=== PATIENT | female | born 1950 | race Caucasian/White ===

== ENCOUNTER 2018-09-10 16:46 | Emergency (ER) | payer BC ==
[~2018-09-10] VITALS: Ht 172.7 cm; Wt 72.6 kg
[2018-09-10] MEDS ORDERED: CYCLOBENZAPRINE10 MG PO (18:43)
[2018-09-10] MEDS ORDERED: Motrin,Rufen800 MG PO (18:43)
== END 2018-09-10 19:15 | disposition home or self-care (01) ==
LOC: ED 16:46
DX: S29.011A Strain of muscle and tendon of front wall of thorax, initial encounter (principal); V43.52XA Car driver injured in collision with other type car in traffic accident, initial encounter; Y93.89 Activity, other specified; Y92.488 Other paved roadways as the place of occurrence of the external cause; Y99.8 Other external cause status

== ENCOUNTER → 2023-01-16 | Outpatient (CLI) | payer MEDICARE ==
[~2023-01-16] MED LIST: CYCLOBENZAPRINE10 MG PO; Motrin,Rufen800 MG PO
== END | disposition home or self-care (01) ==
LOC: LAB 15:01
PROVIDERS: ATTEND Dermatology
DX: L40.0 Psoriasis vulgaris (principal)

== ENCOUNTER 2023-02-28 17:08 | Emergency (ER) | payer MEDICARE ==
[~2023-02-28] VITALS: Ht 172.7 cm; Wt 61.2 kg
[2023-02-28 17:58] LABS: BASO % 0.8 % (0.0-1.0); EOS # 0.2 10*3/uL (0.0-0.4); EOS % 4.8 % (1.0-4.0); LYMPH # 1.6 10*3/uL (1.3-4.4); LYMPH % 32.5 % (27.0-41.0); MEAN CELL VOLUME 92.2 fl (81.0-99.0); MEAN CORPUSCULAR HGB 30.7 pg (27.0-31.0); MEAN CORPUSCULAR HGB CONC 33.3 g/dl (33.0-37.0); MEAN PLATELET VOLUME 10.7 fl (9.6-12.3); MONO # 0.3 10*3/uL (0.1-1.0); MONO % 6.4 % (3.0-9.0); NEUT # 2.8 10*3/uL (2.3-7.9); NEUT % 55.3 % (47.0-73.0); PLATELET COUNT AUTOMATED 244 10*3/uL (130-400); RED BLOOD COUNT 4.23 10*6/uL (4.10-5.10); RED CELL DISTRI WIDTH 12.6 % (0-14.5)
[2023-02-28 18:12] LABS: ACT PARTIAL THROMBO TIME 25.8 SECONDS (20.0-32.1)
[2023-02-28 18:31] LABS: ALKALINE PHOSPHATASE 124 U/L (46-116); BUN 15 mg/dl (9-23); CHLORIDE 107 mmol/L (98-107); LIPASE 100 U/L (12-53); POTASSIUM 3.6 mmol/L (3.4-5.1); SGPT/ALT 10 U/L (10-49)
[2023-02-28 18:51] LABS: BILIRUBIN Negative (Negative); BLOOD Negative (Negative); CLARITY Clear (Clear); COLOR Dark Yellow (Yellow); GLUCOSE Negative (Negative); KETONE Trace (Negative); LEUKO ESTERASE Negative (Negative); NITRITE Negative (Negative); PH 5.5 (4.5-8.0); SPECIFIC GRAVITY >= 1.030 (1.001-1.030)
[2023-02-28 19:03] LABS: CALCIUM OXALATE CRYSTALS 1+; EPITHELIAL CELLS 0-2; HYALINE CAST 0-2; MUCOUS 2+
[2023-02-28 19:04] LABS: BACTERIA TRACE
[2023-02-28] MEDS ORDERED: PREDNISONE20 M1 PO (20:00)
== END 2023-02-28 20:15 | disposition home or self-care (01) ==
LOC: ED 17:08
PROVIDERS: Internal Medicine
DX: G51.0 Bell's palsy (principal); E78.00 Pure hypercholesterolemia, unspecified; Z98.890 Other specified postprocedural states; Z90.11 Acquired absence of right breast and nipple

== ENCOUNTER → 2025-06-06 | Outpatient (CLI) | payer BC ==
[~2025-06-06] MED LIST changes: +PREDNISONE20 M1 PO
[2025-06-08 06:07] LABS: TB1 Ag VALUE 0.14 IU/mL (.)
== END | disposition home or self-care (01) ==
LOC: LAB 16:28
PROVIDERS: ATTEND Dermatology
DX: L40.0 Psoriasis vulgaris (principal)